=== PATIENT | male | born 1955 | race Caucasian/White ===

== ENCOUNTER 2024-02-09 08:02 | Inpatient (IN) | payer MEDICARE, OTHER ==
[~2024-02-09] VITALS: Ht 165.1 cm; Wt 79.4 kg
[2024-02-09] MEDS ORDERED: ANESTHESIA TRAY IN PYXIS 1 EA TRAY MC ONE (08:26)
[2024-02-09] MEDS ORDERED: FAMOTIDINE/PF INJ 20 MG/2 ML VIAL IV ONE (10:14)
[2024-02-09] MEDS: IV D5/0.45 NACL 1,000 ML IV PRN (11:41)
[2024-02-09 12:00] VITALS: BP 160/79; TEMP 97.9; O2SAT 99
[2024-02-09] MEDS: PANTOPRAZOLE 40 MG VIAL IV SCH (13:08)
[2024-02-09] MEDS: SUCRALFATE 1 G/10 ML UDC PO SCH (13:09)
[2024-02-09] MEDS ORDERED: RIVA2.5T PO (14:28)
[2024-02-09] MEDS ORDERED: CLOP75TA15 PO (14:28)
[2024-02-09] MEDS ORDERED: METF-442 PO (14:28)
[2024-02-09] MEDS ORDERED: LOSA50TA39 PO (14:28)
[2024-02-09] MEDS ORDERED: ATOR40TA PO (14:28)
[2024-02-09] MEDS ORDERED: EMPA25TA PO (14:28)
[2024-02-09] MEDS ORDERED: GABA300C PO (14:28)
[2024-02-09] MEDS ORDERED: PANTOPRAZOLE 80 MG in IV NS 0.9% 500 ML IV SCH ×2 (14:30→15:00)
[2024-02-09 15:10] LABS: BASOPHILS # (AUTO) 0.1 K/uL (0.0-0.2); EOSINOPHILS # (AUTO) 0.1 K/uL (0.0-0.7); EOSINOPHILS % (AUTO) 1.8 % (0.0-6.0); HEMATOCRIT 31 % (39-51); HEMOGLOBIN 9.9 g/dL (13.5-17.5); LYMPHOCYTES % (AUTO) 39.1 % (20.0-44.0); MEAN CORPUSCULAR HEMOGLOBIN 27 PG (26.0-33.0); MEAN CORPUSCULAR HGB CONC 32 g/dl (31.0-36.0); MEAN CORPUSCULAR VOLUME 84 fL (80-96); MONOCYTES # (AUTO) 0.5 K/uL (0.1-1.30); MONOCYTES % (AUTO) 9.1 % (2.0-12.0); NEUTROPHILS # (AUTO) 2.6 K/uL (1.8-8.9); PLATELET COUNT (AUTO) 244 K/uL (150-450); RED BLOOD CELL COUNT(AUTO) 3.73 MIL/uL (4.5-6.0); RED CELL DISTRIBUTION WIDTH 18.9 % (11.5-15.0); WHITE BLOOD COUNT (AUTO) 5.2 K/uL (4.3-11.0)
[2024-02-09] MEDS: PANTOPRAZOLE 80 MG in IV NS 0.9% 500 ML IV SCH (15:14)
[2024-02-09 15:23] LABS: ALBUMIN 3.1 g/dL (3.4-5.0); BILIRUBIN,TOTAL 0.3 mg/dL (0.2-1.0); CALCIUM, SERUM 9.1 mg/dL (8.5-10.1); CREATININE 0.9 mg/dL (0.6-1.3); POTASSIUM 4.6 mmol/L (3.5-5.1); TOTAL PROTEIN, SERUM 6.8 g/dL (6.4-8.2)
[2024-02-09 15:25] LABS: INR 1.04 (0.91-1.10); PARTIAL THROMBOPLASTIN TIME 27.6 SEC (24.3-34.3)
[2024-02-09 18:00] VITALS: BP 180/85; TEMP 97.7; O2SAT 98
[2024-02-10] MEDS ORDERED: Z GUARD REMEDY 4 OZ OINT TP PRN (11:00)
[2024-02-10] MEDS ORDERED: ONDANSETRON HCL/PF 4 MG/2 ML VIAL IVP PRN (11:00)
[2024-02-10 15:07] LABS: HEMOGLOBIN 10.1 g/dL (13.5-17.5)
[2024-02-10 22:15] LABS: HEMOGLOBIN 9.8 g/dL (13.5-17.5)
[2024-02-11 06:44] LABS: BASOPHILS % (AUTO) 0.9 % (0.0-2.0); EOSINOPHILS # (AUTO) 0.1 K/uL (0.0-0.7); EOSINOPHILS % (AUTO) 1.7 % (0.0-6.0); HEMATOCRIT 34 % (39-51); HEMOGLOBIN 10.7 g/dL (13.5-17.5); LYMPHOCYTES # (AUTO) 1.9 K/uL (0.8-4.8); LYMPHOCYTES % (AUTO) 38.3 % (20.0-44.0); MEAN CORPUSCULAR HEMOGLOBIN 27 PG (26.0-33.0); MEAN CORPUSCULAR HGB CONC 32 g/dl (31.0-36.0); MEAN CORPUSCULAR VOLUME 84 fL (80-96); MONOCYTES # (AUTO) 0.5 K/uL (0.1-1.30); MONOCYTES % (AUTO) 11.1 % (2.0-12.0); NEUTROPHILS # (AUTO) 2.3 K/uL (1.8-8.9); PLATELET COUNT (AUTO) 264 K/uL (150-450); RED BLOOD CELL COUNT(AUTO) 4.01 MIL/uL (4.5-6.0); RED CELL DISTRIBUTION WIDTH 18.3 % (11.5-15.0); WHITE BLOOD COUNT (AUTO) 4.9 K/uL (4.3-11.0)
[2024-02-11 06:49] LABS: CALCIUM, SERUM 8.4 mg/dL (8.5-10.1); CREATININE 0.7 mg/dL (0.6-1.3); MAGNESIUM 1.7 mg/dL (1.8-2.4); PHOSPHORUS 3.2 mg/dL (2.5-4.9); POTASSIUM 3.5 mmol/L (3.5-5.1)
[2024-02-11 08:00] VITALS: BP 166/84; TEMP 97.7; O2SAT 93
[2024-02-11] MEDS: Magnesium 1GM/D5W 100ML PREMIX 100 ML IV SCH (11:07)
[2024-02-11 12:20] VITALS: BP 175/86
[2024-02-11] MEDS: AMLODIPINE BESYLATE 5 MG TABLET PO ONE (12:20)
[2024-02-11] MEDS ORDERED: SUCR1ORA6 PO (12:49)
[2024-02-11] MEDS ORDERED: PANT40TA2 PO (12:49)
[2024-02-11] MEDS ORDERED: SUCRALFATE 1 G TABLET PO SCH (18:00)
[2024-02-12] MEDS ORDERED: AMLODIPINE BESYLATE 5 MG TABLET PO SCH (09:00)
== END 2024-02-11 15:50 | disposition home or self-care (01) | DRG 378 ==
LOC: DS 08:02 → MEDSG1 11:05
PROVIDERS: ADMIT Nurse Practitioner Acute Care; ATTEND Nurse Practitioner Acute Care
PROC: 0DB48ZX Excision of Esophagogastric Junction, Via Natural or Artificial Opening Endoscopic, Diagnostic (ICD-10-PCS; principal; 2024-02-09)
DX: K25.4 Chronic or unspecified gastric ulcer with hemorrhage (principal); D62 Acute posthemorrhagic anemia; K22.11 Ulcer of esophagus with bleeding; E78.5 Hyperlipidemia, unspecified; I10 Essential (primary) hypertension; I25.10 Atherosclerotic heart disease of native coronary artery without angina pectoris; E11.40 Type 2 diabetes mellitus with diabetic neuropathy, unspecified; R13.10 Dysphagia, unspecified; Z87.19 Personal history of other diseases of the digestive system; K22.89 Other specified disease of esophagus; K29.80 Duodenitis without bleeding; Z79.01 Long term (current) use of anticoagulants; K29.70 Gastritis, unspecified, without bleeding; K31.7 Polyp of stomach and duodenum; Z86.73 Personal history of transient ischemic attack (TIA), and cerebral infarction without residual deficits; Z88.6 Allergy status to analgesic agent; Z79.02 Long term (current) use of antithrombotics/antiplatelets
CPT/HCPCS: 36415; 71045-TC; 80048-TC; 80053-TC; 82962-TC; 83735-TC; 84100-TC; 85025-TC; 85027-TC; 85730-TC; 88305-TC; 88313-TC; A4223; G0378; J2470; J2704; J3475; J3490; J7040; J7050